=== PATIENT | male | born 1985 | race Caucasian/White ===

== ENCOUNTER 2017-04-05 18:18 | Emergency (ER) | payer SELFPAY ==
[2017-04-05 18:19] VITALS: BP 140/76; PULSE 76; RESP 16; TEMP 37.2; O2SAT 98; BMI 27.8
--- NOTE | 2017-04-05 18:47 | ED.VISSUMM ---
- ER Visit Summary Date of Service: 04/05/17 Chief Complaint: Abscess History of Present Illness: The patient is a 31 M noted an abscess behind his right ear 2 days ago. He got drainage from the area this morning but now it seems more inflamed and painful. He denies fever. Physical Examination: Vital signs grossly unremarkable. Head neck examination with a 1 x 2 cm abscess posterior to the right ear with a large overlying scab. There is induration noted at this time but no fluctuance. No lymphangitic streaking. Heart is regular rate and rhythm without murmur. Test Results: [] Emergency Department Course and Treatment: Patient be treated with Bactrim and Keflex. He is advised to use warm compresses to the area 4 times a day. Treatment Plan: [] Disposition: Discharge Impression: Cutaneous abscess This note was generated with [employer] dictation software. It may contain incorrect words, spelling, and punctuation that were not noted in review of the chart prior to signing ED Disposition - Plan for ED Patient: Chief Complaint: Abscess Referrals: [facility] Doctor,Out of [Primary Care Provider] -
--- NOTE | 2017-04-05 18:52 | ED.DCSUM_ITS ---
- ER Visit Summary Date of Service: 04/05/17 Chief Complaint: Abscess History of Present Illness: The patient is a 31 M noted an abscess behind his right ear 2 days ago. He got drainage from the area this morning but now it seems more inflamed and painful. He denies fever. Physical Examination: Vital signs grossly unremarkable. Head neck examination with a 1 x 2 cm abscess posterior to the right ear with a large overlying scab. There is induration noted at this time but no fluctuance. No lymphangitic streaking. Heart is regular rate and rhythm without murmur. Test Results: [] Emergency Department Course and Treatment: Patient be treated with Bactrim and Keflex. He is advised to use warm compresses to the area 4 times a day. Treatment Plan: [] Disposition: Discharge Impression: Cutaneous abscess This note was generated with [employer] dictation software. It may contain incorrect words, spelling, and punctuation that were not noted in review of the chart prior to signing ED Disposition - Plan for ED Patient: Chief Complaint: Abscess Referrals: [facility] Doctor,Out of [Primary Care Provider] -
--- NOTE | 2017-04-05 18:56 | ED.DEP ---
ED Disposition - Plan for ED Patient: Disposition: Home or Assisted Living Chief Complaint: Abscess Instructions: ED Staph Infec Abx Tx Only Prescriptions: Cephalexin [Keflex] 500 mg PO Q6 #40 capsule Smz/Tmp Ds [Bactrim Ds] 1 tablet PO BID #20 tablet Referrals: [facility] Doctor,Out of [Primary Care Provider] -
[2017-04-05] MEDS: Smz/Tmp Ds Tablet 1 TABLET PO (19:07)
[2017-04-05] MEDS: Cephalexin 250 MG Capsule 500 MG PO (19:07)
--- NOTE | 2017-04-05 19:08 | ED.RN ---
PT EDUCATED BY THIS RN ON DISCHARGE INSTRUCTIONS AND HOME GOING PRESCRIPTIONS. PT VERBALIZES UNDERSTANDING AND DENIES ANY FURTHER QUESTIONS. PT AMBULATORY HOME BY SELF.
== END 2017-04-05 19:09 | disposition home or self-care (01) ==
PROVIDERS: Emergency Provider Emergency Medicine
DX: H60.01 Abscess of right external ear (principal); Z72.0 Tobacco use
CPT/HCPCS: 99283

== ENCOUNTER → 2017-07-01 09:40 | Outpatient (CLI) | payer SELFPAY ==
--- NOTE | 2017-07-01 09:47 | US_ITS ---
STUDY: ABDOMINAL ULTRASOUND - RIGHT UPPER QUADRANT REASON FOR VISIT: Male, 32 years old. Right upper quadrant pain. Nausea. TECHNIQUE: Ultrasound evaluation of the right upper quadrant was performed with real-time and static krishnamurthy-scale imaging. TECHNICAL QUALITY: Adequate. COMPARISON: None. FINDINGS: Liver: The liver measures 15.7 cm. There is normal echogenicity of the liver. The bile ducts are within normal limits. There is hepatic color flow. The direction of portal flow is hepatopetal. There is no demonstrated mass lesion. Gallbladder: Normal distended gallbladder. The gallbladder wall measures 2 mm. There is a negative sonographic Carranza's sign. There is no pericholecystic fluid. There are no gallstones. Common Bile Duct (C.B.D.): The common bile duct measures 5 mm. Pancreas: Normal size of the head, body and tail of the pancreas. There is normal echogenicity of the pancreas. There is no demonstrated pancreatic mass or cyst. Right Kidney: Normal size of the right kidney. The right kidney measures 12.3 cm. Normal renal cortex. The right cortex measures 1.6 cm. There is no demonstrated renal mass or cyst. There is no right hydronephrosis. US/Abdomen Limited IMPRESSION: Normal right upper quadrant ultrasound examination. Electronically Signed: Rosalio Tolbert MD at 11:08 EDT , Service support ,
== END ==
PROVIDERS: Visit Provider Physician Assistant Surgical
DX: R10.11 Right upper quadrant pain (principal); R11.0 Nausea
CPT/HCPCS: 76705